=== PATIENT | female | born 1985 | race Caucasian/White ===

== ENCOUNTER → 2016-12-07 | Outpatient (CLI) | payer BC ==
[~2016-12-07] MED LIST: LIDOCAINE 2% JELLY 5 ML TUBE ONE; METOCLOPRAMIDE 10 MG/2 ML VIAL ONE; ONDANSETRON 4 MG/2 ML VIAL ONE; PROPOFOL 200 MG/20 ML VIAL ONE; fentaNYL 100 MCG/2 ML INJ ONE
--- NOTE | 2016-12-07 12:49 | US ---
December 07, 2016 Dear Providers at the [facility], Thank you for allowing me to see your patient, Mrs. Christina for aneuploidy screening and con sult. As you know she is a 31 year-old, 2, para 1001. Her due date is 06/21/17 by LMP of . Based on this dating her current gestational age is 12 weeks 0 days. She is seen today as s he had an abnormal NIPT revealing positive results for Trisomy 13. She is an otherwise healthy woman without chronic medical issues. Her first delivered vaginally at term. The baby was 8 lb 7 oz. ULTRASOUND LMP: 09/12/16 Gestational age by LMP: 12 weeks 0 days SUYAPA by LMP: 06/21/16 CRL: 55 mm Gestational Age by CRL: 11 weeks 6 days SUYAPA by CRL: 06/22/16 Consistent with established dating (LMP or ultrasound): Yes Nuchal Translucency: Large cystic hygroma; septated Nasal Bone: Not seen Heart Rate: 192 bpm Placenta: Anterior Right Ovary: Is visualized and appears normal. It measures 1.8 x 1.4 x 1.8 cm. Left Ovary: Is visualized and appears normal. It measures 2.6 x 2.0 x 2.1 cm I am concerned about early findings concerning for aneuploidy. This baby has a large cystic hygroma. I believe there are supernumerary digits on both hands. I believe there may be an omphalocele and 2 vessel cord. The choroids appear divided and normal in appearance and I could not see the face wel l enough, but two orbits are seen. Impression: 1. Intrauterine at 12w, 0d, SUYAPA of 06/21/17. 2. Abnormal NIPT for Trisomy 13 and ultrasound findings concerning for aneuploidy/ Recommendations: 1. Reviewed blood work findings in conjunction with the findings by ultrasound today. I am very dakotah picious that this fetus is affected by Trisomy 13. We reviewed opportunities to pursue definitive ge netic diagnosis by CVS and amniocentesis. They desire CVS. Therefore, she is being scheduled with m y partner, Dr. Solis, for tomorrow at the [facility]. 2. Should aneuploidy be confirmed, she desires to interrupt the . At these early gestation al ages, she may choose an donor services coordinator or a family planning provider. I will leave this to your cli nical discretion. Thank you for allowing us the opportunity to evaluate your patient. Should you have any further ques tions or concerns please do not hesitate to contact me. Approximately 30 minutes were spent with the patient and 20 minutes were spent in face to face consu ltation. Deanna Díaz MD [facility] Department of Obstetrics & Gynecology [facility]
--- NOTE | 2016-12-07 13:36 | US ---
First Trimester Obstetrical Sonography Clinical History: 31-year-old female presenting for early screening evaluation with noninvas baljinder testing suggestive of trisomy 13. Technique: A curvilinear 5 MHz transducer was used to sonographically evaluate the fetus and the plac enta. M-mode Doppler was used. Dr. Deanna Díaz was present. Comparison Study: None from the current . LMP: September 14, 2016, indicating an age of 12 weeks 0 days, and an estimated date of delivery of 2016. Findings: There is a single viable intrauterine gestation with a crown-rump length of 55 mm, c orresponding to an age of 12 weeks 1 day. The nuchal translucency is abnormally thickened, measuring up to 3.2 mm with a partially septated cystic hygroma present. The nasal bone is not seen. These feat ures can be seen in conjunction with aneuploidy. 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 The maternal right ovary measures 1.4 x 1.8 x 1.8 cm, and the maternal left ova ry measures 2.0 x 2.1 x 2.6 cm. The placenta is forming anteriorly. There is no focal fibroid or subc horionic hemorrhage. A yolk sac is observed. The heart rate is 192 beats per minute. There may be a t wo-vessel cord. Impression: There is a single viable intrauterine gestation with 2 abnormal early screening markers, suggestive of aneuploidy and potential supernumerary digits on the hands, a potential ompha locele, and a two-vessel cord. The patient will be scheduled for chorionic villi sampling at the [facility].
== END ==
LOC: FIMAGING 11:30
PROVIDERS: ATTEND Advanced Practice Midwife
DX: O35.1XX0 Maternal care for (suspected) chromosomal abnormality in fetus, not applicable or unspecified (principal); O35.8XX0 Maternal care for other (suspected) fetal abnormality and damage, not applicable or unspecified; Z3A.12 12 weeks gestation of pregnancy

== ENCOUNTER → 2016-12-11 | Day surgery (SDC) | payer BC ==
[~2016-12-11] MED LIST changes: +HYDROCODONE/APAP 5/325 TAB PO PRN; +IBUPROFEN 600 MG TAB PO ONE; +LIDOCAINE 1% 30 ML SDV IF ONE; -LIDOCAINE 2% JELLY 5 ML TUBE ONE; -METOCLOPRAMIDE 10 MG/2 ML VIAL ONE; +MIDAZOLAM 2 MG/2 ML VIAL IVP ONE; -ONDANSETRON 4 MG/2 ML VIAL ONE; -PROPOFOL 200 MG/20 ML VIAL ONE; +ceFAZolin 2 GM/DEXTROSE 100 ML IV ONE; -fentaNYL 100 MCG/2 ML INJ ONE
--- NOTE | 2016-12-11 08:52 | SUROPNOTE ---
[facility] Operative Report - Surgery 12/11/16 Fin[employer] [facility] Procedure Note Procedure: Suction dilation and curettage under ultrasound guidance Preoperative dx: 12 week gestation with trisomy 13 Postoperative dx: Same Findings: Anteverted gravid uterus consistent with 12 weeks. products inspected after procedure, confirming complete procedure. Fluids: 600 ml crystalloid EBL: Minimal Anesthesia: Erazo Anesthetic: General with LMA Surgeon: Migel Indications: Patient is a 31 yr old at 12w4d by LMP and 1st trim US. She had an NIPT test consistent with trisomy 13 and abnormal US findings. She and her elect to proceed with termination after an MFM consultation. She is Rh positive. History of 1 uncomplicated . PMH otherwise non contributory. Details of procedure: Patient was taken to the operating room and anesthetic was induced. A time out was performed with all parties present. 2g IV ancef had been given. Her bladder had been emptied. She was placed in dorsal lithotomy position with stirrups and prepped and draped in the normal sterile fashion. A bivalve speculum was placed. A single toothed tenaculum was placed on the anterior lip and a paracervical block was performed with 10 ml of 1% lidocaine. The cervix was easily dilated to 13 cm using hegar dilators. The 12 mm suction curette was introduced and all POC was removed under direct US guidance. One additional suction curettage was performed with an 8 mm curette, confirming a gritty texture throughout the uterus. The ultrasound also showed a thin stripe. All instruments were removed. Hemostasis was noted. Products were examined and found to complete and consistent with gestational age. Counts correct x 2. She was awakened and brought to the recovery room in stable condition. she will follow-up in the office in 2 weeks. Routine precautions given. Ann Lainez MD p [phone]
== END | disposition home or self-care (01) ==
LOC: FOBOP 05:33
PROVIDERS: ATTEND Obstetrics & Gynecology
PROC: 10A07ZZ Abortion of Products of Conception, Via Natural or Artificial Opening (ICD-10-PCS; principal; 2016-12-11)
DX: O35.1XX0 Maternal care for (suspected) chromosomal abnormality in fetus, not applicable or unspecified (principal); Z3A.12 12 weeks gestation of pregnancy
CPT/HCPCS: J0690; J2250

== ENCOUNTER → 2017-04-15 | Outpatient (CLI) | payer BC | LOC: FIMAGING 09:03 | PROVIDERS: ATTEND Advanced Practice Midwife | DX: O09.891 Supervision of other high risk pregnancies, first trimester (principal); Z3A.12 12 weeks gestation of pregnancy ==

== ENCOUNTER → 2017-06-10 | Outpatient (CLI) | payer BC | LOC: FIMAGING 10:00 | PROVIDERS: ATTEND Advanced Practice Midwife | DX: O35.8XX0 Maternal care for other (suspected) fetal abnormality and damage, not applicable or unspecified (principal); Z3A.20 20 weeks gestation of pregnancy; Z87.59 Personal history of other complications of pregnancy, childbirth and the puerperium ==